=== PATIENT | male | born 2000 | race Caucasian/White ===

== ENCOUNTER 2023-11-25 09:33 | Day surgery (SDC) | payer OTHER ==
[~2023-11-25] VITALS: Ht 167.6 cm; Wt 77.2 kg
[~2023-11-25 09:33] MED LIST: LR 1,000 ML IV SCH; Ondansetron 4 MG/2 ML VIAL IV PRN
[2023-11-25] MEDS ORDERED: MIRALAX238G PO (10:25)
[2023-11-25] MEDS ORDERED: MAGCITRATE (10:26)
[2023-11-25] MEDS ORDERED: DULCOLAX STOOL100 MG PO (10:27)
[2023-11-25 11:40] VITALS: BP 100/48; PULSE 67; TEMP 97.8
[2023-11-25 11:55] VITALS: BP 106/62; BP 116/59; PULSE 66; TEMP 97.4
--- NOTE | 2023-11-25 11:57 | NUR ---
1011 Patient ambulatory to bay 4 with a steady gait, breathing even and unlabored. Patient is alert and oriented. Consents reviewed and signed by patient. IV established. LR infusing via gravity at KVO. Call light in reach. Warm blanket provided.
[2023-11-25 12:10] VITALS: BP 104/62; PULSE 58
--- NOTE | 2023-11-25 16:10 | NUR ---
[id number]: PT TO [facility] FROM [facility] S/P COLONOSCOPY A&O, PLACED ON MONITOR, VSS ON RA RECEIVED REPORT AND ASSUMED CARE OF PT FROM [facility] FRIEND IN WR TO DRIVE PT HOME PROVIDED FOOD/FLUIDS, TOLERATING WELL IN TO SPEAK WITH PT POST-PROCEDURE PT HAS REMAINED A&O, NAD, VSS ON RA, TOLERATING PO, IS WITHOUT SIGNIFICANT COMPLAINT, WITH GAIT THRU OUT STAY IV D/C'D. D/C INSTRUCTIONS, ANY FOLLOW UP REVIEWED AND HANDED TO PT. ALL QUESTIONS AND CONCERNS ADDRESSED TO PT SATISFACTION. TAKEN TO EXIT VIA W/C WITH ALL BELONGINGS AND PAPERWORK IN HAND, ASSISTED INTO PASSENGER SEAT OF POV. FRIEND TO DRIVE HOME.
== END 2023-11-25 12:25 | disposition home or self-care (01) ==
LOC: SDCO 09:33
DX: I85.00 Esophageal varices without bleeding (principal); K74.60 Unspecified cirrhosis of liver; K29.70 Gastritis, unspecified, without bleeding; R14.0 Abdominal distension (gaseous); K59.04 Chronic idiopathic constipation; K76.6 Portal hypertension; Z79.899 Other long term (current) drug therapy
CPT/HCPCS: J2704; J7120